=== PATIENT | female | born 1960 | race African-American/Black ===

== ENCOUNTER 2021-03-09 12:30 | Emergency (ER) | payer MEDICARE, MEDICAID ==
[~2021-03-09] VITALS: Ht 154.9 cm; Wt 49.4 kg
[~2021-03-09 12:30] MED LIST: DILAUDID2 M1 PO; HYDROCODON-ACE1 EAC8; MORPHINE; PERCOCET 10-321 EACH; VALIUM5 MG
[2021-03-09] MEDS ORDERED: LINZESS290 MCG PO (13:45)
[2021-03-09] MEDS ORDERED: PROAIR HFA8.5 GM INH (13:46)
[2021-03-09] MEDS ORDERED: AZELASTINE137 MCG/0. NASAL (13:47)
[2021-03-09] MEDS ORDERED: FLEXERIL PO (13:47)
[2021-03-09] MEDS ORDERED: DIAZEPAM 10 MG10 M1 PO (13:48)
[2021-03-09] MEDS ORDERED: DEPAKOTE 250MG250 MG PO (13:50)
[2021-03-09] MEDS ORDERED: AIMOVIG AU70 MG/1 ML SUBQ (13:51)
[2021-03-09] MEDS ORDERED: NEXIUM40 MG PO (13:52)
[2021-03-09] MEDS ORDERED: VITAMIN D250 MC1 PO (13:52)
[2021-03-09] MEDS ORDERED: HYDROXYZINE HCL25 M2 PO (13:53)
[2021-03-09] MEDS ORDERED: FLUCONAZOLE200 MG PO (13:53)
[2021-03-09] MEDS ORDERED: LORATIDINE 10 M10 M1 PO (13:53)
[2021-03-09] MEDS ORDERED: LASIX 40 MG TAB40 MG PO (13:53)
[2021-03-09] MEDS ORDERED: MIRALAX119 GM PO (13:54)
[2021-03-09] MEDS ORDERED: SUPER THERAVIT1 EACH PO (13:54)
[2021-03-09] MEDS ORDERED: PERCOCET 10-321 EAC1 PO (13:54)
[2021-03-09] MEDS ORDERED: PROMETHAZINE PO (13:55)
[2021-03-09] MEDS ORDERED: PRAMIPEXOLE DI0.5 MG PO (13:55)
[2021-03-09] MEDS ORDERED: INDERAL LA120 M1 PO (13:56)
[2021-03-09] MEDS ORDERED: SUMATRIPTAN SUBQ (13:57)
[2021-03-09] MEDS ORDERED: ZONEGRAN100 MG PO (13:57)
[2021-03-09 14:11] LABS: ABSOLUTE BASOPHILS 0.1 thou/uL (0.0-0.2); ABSOLUTE EOSINOPHILS 0.1 thou/uL (0.0-0.7); ABSOLUTE LYMPHOCYTES 2.8 thou/uL (0.8-5.3); ABSOLUTE MONOCYTES 0.5 thou/uL (0.0-1.2); BASOPHILS 0.9 %; HEMATOCRIT 37.8 % (37.0-47.0); HEMOGLOBIN 12.5 gm/dL (12.0-15.0); LYMPHOCYTES 37.6 %; MCH 30.7 pg (26.0-34.0); MCV 92.8 fL (80.0-100.0); MONOCYTES 6.8 %; MPV 7.2 fl. (7.2-11.1); NUCLEATED RBCS 0 /100WBC; PLATELET COUNT* 399 thou/uL (150-400); POLYS 53.7 %; RBC 4.07 mil/uL (4.20-5.00); RDW-CV 13.1 % (10.5-14.5); WBC 7.5 thou/uL (4.0-11.0)
[2021-03-09 14:18] LABS: CALCIUM 8.8 mg/dL (8.5-10.1); CREATININE 0.8 mg/dL (0.6-1.3); POTASSIUM 4.3 mmol/L (3.5-5.1)
[2021-03-09 14:24] LABS: ALBUMIN 3.8 g/dL (3.4-5.0); TOTAL BILIRUBIN 0.7 mg/dL (<0.1-1.0)
--- NOTE | 2021-03-09 14:54 | EKG ---
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: : 1960 Requested By: Marcos Armando Order Number: [id number] MD: Syd Fischer Measurements Intervals [place] Rate: 69 P: 72 VT: 157 QRS: 26 QRSD: 75 T: 57 QT: 415 QTc: 445 Interpretive Statements Sinus rhythm Biatrial enlargement Left ventricular hypertrophy Anterior infarct, old No previous ECG available for comparison Electronically Signed On 03-09-2021 14:54:02 CDT by Syd Fischer [email or web address] <ELECTRONICALLY SIGNED> By: Syd Fischer MD, [facility] 03/09/21 1454 1406 140 Syd Fischer MD, FAC /EPI
[2021-03-09 16:14] VITALS: BP 155/89
== END 2021-03-09 16:14 | disposition home or self-care (01) ==
LOC: M.ERS 12:30
PROVIDERS: Emergency Medicine Emergency Medical Services
DX: M71.21 Synovial cyst of popliteal space [Baker], right knee (principal); I95.1 Orthostatic hypotension; G43.909 Migraine, unspecified, not intractable, without status migrainosus; Z79.82 Long term (current) use of aspirin; Z79.899 Other long term (current) drug therapy; Z88.6 Allergy status to analgesic agent; Z88.5 Allergy status to narcotic agent; Z88.0 Allergy status to penicillin; Z88.1 Allergy status to other antibiotic agents

== ENCOUNTER 2021-05-10 03:33 | Emergency (ER) | payer MEDICARE, MEDICAID ==
[~2021-05-10] VITALS: Ht 154.9 cm; Wt 48.1 kg
[~2021-05-10 03:33] MED LIST changes: +AIMOVIG AU70 MG/1 ML SUBQ; +AZELASTINE137 MCG/0. NASAL; +DEPAKOTE 250MG250 MG PO; +DIAZEPAM 10 MG10 M1 PO; +FLEXERIL PO; +FLUCONAZOLE200 MG PO; +HYDROXYZINE HCL25 M2 PO; +INDERAL LA120 M1 PO; +LASIX 40 MG TAB40 MG PO; +LINZESS290 MCG PO; +LORATIDINE 10 M10 M1 PO; +MIRALAX119 GM PO; +NEXIUM40 MG PO; +PERCOCET 10-321 EAC1 PO; +PRAMIPEXOLE DI0.5 MG PO; +PROAIR HFA8.5 GM INH; +PROMETHAZINE PO; +SUMATRIPTAN SUBQ; +SUPER THERAVIT1 EACH PO; +VITAMIN D250 MC1 PO; +ZONEGRAN100 MG PO
[2021-05-10 04:13] LABS: INFLUENZA A ANTIGEN Negative (Negative); INFLUENZA B ANTIGEN Negative (Negative)
[2021-05-10] MEDS ORDERED: AZELASTINE137 MCG/0. INH (04:30)
[2021-05-10] MEDS ORDERED: PROAIR HFA8.5 GM INH (04:30)
[2021-05-10] MEDS ORDERED: PREDNISONE50 MG PO (04:30)
[2021-05-10 04:38] VITALS: BP 175/100
--- NOTE | 2021-05-10 12:23 | EKG ---
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: [place] : 1960 Requested By: Ricarda Chen Order Number: [id number] MD: Jean Gentile Measurements Intervals [place] Rate: 92 P: [place]: QRS: 59 QRSD: 65 T: 64 QT: 349 QTc: 432 Interpretive Statements sinus rhythm Consider left ventricular hypertrophy Anterior Q waves, possibly due to LVH Compared to ECG 03/09/2021 14:06:39 rate has increased Electronically Signed On 05-10-2021 12:23:18 RIG SUPERINTENDENT by Jean Gentile [email or web address] <ELECTRONICALLY SIGNED> By: Jean Gentile MD, [facility] 05/10/21 1223 0340 0340 Jean Gentile MD, [facility] /EPI
== END 2021-05-10 04:38 | disposition home or self-care (01) ==
LOC: M.ERS 03:33
PROVIDERS: Emergency Medicine
DX: J06.9 Acute upper respiratory infection, unspecified (principal); Z20.822 Contact with and (suspected) exposure to COVID-19; M79.7 Fibromyalgia; G43.909 Migraine, unspecified, not intractable, without status migrainosus; Z88.6 Allergy status to analgesic agent; Z91.041 Radiographic dye allergy status; Z91.040 Latex allergy status; Z88.1 Allergy status to other antibiotic agents; Z79.899 Other long term (current) drug therapy